=== PATIENT | male | born 2000 | race Two or more races ===

== ENCOUNTER 2022-01-16 19:05 | Emergency (ER) | payer OTHER, SELFPAY ==
[2022-01-16] MEDS ORDERED: Ketorolac Tromethamine 30 MG/ML VIAL ONE (20:06)
== END 2022-01-16 20:45 | disposition home or self-care (01) ==
LOC: ERS 19:05
DX: M25.512 Pain in left shoulder (principal); Y04.0XXA Assault by unarmed brawl or fight, initial encounter; Y93.72 Activity, wrestling
CPT/HCPCS: 96372; J1885

== ENCOUNTER 2023-07-18 20:57 | Emergency (ER) | payer OTHER, SELFPAY ==
[2023-07-18] MEDS ORDERED: Morphine 4 MG/ML VIAL ONE (21:08)
== END 2023-07-18 22:46 | disposition home or self-care (01) ==
LOC: ERS 20:57
DX: S42.022A Displaced fracture of shaft of left clavicle, initial encounter for closed fracture (principal); W18.30XA Fall on same level, unspecified, initial encounter; Y93.66 Activity, soccer
CPT/HCPCS: 96374; J2270